=== PATIENT | female | born 1965 | race American Indian/Alaskan Native ===

== ENCOUNTER 2021-10-19 21:53 | Inpatient (IN) | payer OTHER ==
--- NOTE | 2021-10-19 22:47 | Cat Scan Report ---
CT HEAD WITHOUT CONTRAST INDICATION / CLINICAL INFORMATION: neuro deficits <6hrs or sx present upon awakening. TECHNIQUE: All CT scans at this location are performed using CT dose reduction for ALARA by means of automated e xposure control. COMPARISON: None available. FINDINGS: HEMORRHAGE: No evidence of intracranial hemorrhage or extra-axial fluid collection. EXTRA-AXIAL SPACES: Cortical sulci, sylvian fissures and basilar cisterns have an unremarkable appear ance. VENTRICULAR SYSTEM: The third and lateral ventricles are of normal size and configuration. CEREBRAL PARENCHYMA: No areas of abnormal brain parenchymal attenuation are identified. There is no i ndication of recent infarction. MIDLINE SHIFT OR HERNIATION: There is no mass effect. CEREBELLUM / BRAINSTEM: Brainstem and cerebellum have an unremarkable appearance. MIDLINE STRUCTURES:No abnormalities of the pituitary gland or pineal region are identified. INTRACRANIAL VESSELS:No abnormalities are identified on this noncontrast head CT. ORBITS: visualized portions of the orbits have an unremarkable appearance. SOFT TISSUES of HEAD: No significant abnormality. CALVARIUM: Evaluation of bone windows reveals no abnormalities. PARANASAL SINUSES / MASTOID AIR CELLS: Visualized portions of the paranasal sinuses are free from inf lammatory mucosal disease. Mastoid air cells are normally pneumatized. ADDITIONAL FINDINGS: None. IMPRESSION: 1. No significant intercranial abnormality identified on head CT without contrast. Signer Name: Wes Anderson MD Signed: 10/19/2021 10:43 PM Workstation Name: [id number]
[2021-10-19 23:15] LABS: Basophils % (Auto) 0.6 % (0.0-1.8); Hematocrit 42.3 % (30.3-42.9); Lymphocytes # (Auto) 2.4 K/mm3 (1.2-5.4); Lymphocytes % (Auto) 38.4 % (13.4-35.0); Mean Corpuscular HGB Conc 33 % (30-34); Mean Corpuscular Volume 87 fl (79-97); Monocytes # (Auto) 0.5 K/mm3 (0.0-0.8); Monocytes % (Auto) 7.9 % (0.0-7.3); Platelet Count 245 K/mm3 (140-440); Red Blood Count 4.84 M/mm3 (3.65-5.03); Red Cell Distribution Width 14.6 % (13.2-15.2)
[2021-10-19 23:18] LABS: Thrombin Time 16.6 Sec. (15.1-19.6)
[2021-10-19 23:22] LABS: Blood Urea Nitrogen 15 mg/dL (7-17); Calcium 9.7 mg/dL (8.4-10.2); Hemolysis Index 6
[2021-10-19 23:29] LABS: BUN/Creatinine Ratio 30
--- NOTE | 2021-10-20 08:59 | Emergency Department Report ---
ED Neuro Deficit HPI - General Chief Complaint: Neuro Symptoms/Deficit Stated Complaint: RIGHT SIDE NUMBNESS Source: patient, family Mode of arrival: Ambulatory Limitations: No Limitations - History of Present Illness Initial Comments: Patient is a 56-year-old female presenting to ED with complaint of right-sided facial numbness along with weakness in her right arm and leg beginning 2 days ago. She denies any past history of CVA. - Related Data Allergies/Adverse Reactions: Allergies Allergy/AdvReac Type Severity Reaction Status Date / Time No Known Allergies Allergy Verified 10/19/21 22:10 ED Review of Systems ROS: Stated complaint: RIGHT SIDE NUMBNESS Other details as noted in HPI Constitutional: denies: chills, fever Respiratory: denies: cough, shortness of breath, wheezing Cardiovascular: denies: chest pain, palpitations Gastrointestinal: denies: abdominal pain, nausea, diarrhea Genitourinary: denies: urgency, dysuria, discharge Musculoskeletal: denies: back pain, joint swelling, arthralgia Skin: denies: rash, lesions Neurological: weakness, numbness Psychiatric: denies: anxiety, depression ED Neuro Physical Exam - General Limitations: No Limitations General appearance: alert, in no apparent distress Suspected Stroke: No - Head Head exam: Present: atraumatic, normocephalic - Respiratory Respiratory exam: Present: normal lung sounds bilaterally. Absent: respiratory distress - Cardiovascular Cardiovascular Exam: Present: regular rate, normal rhythm, normal heart sounds - GI/Abdominal GI/Abdominal exam: Present: soft. Absent: distended, tenderness - Rectal Rectal exam: Present: deferred - Neurological Exam Neurological exam: Present: alert, oriented X3 - NIHSS Assessment Interval: Baseline 1a. Level of Consciousness: alert/keenly responsive 1b. LOC Questions: answers both correctly 1c. LOC Commands: performs tasks correctly 2. Best Gaze: normal 3. Visual: no visual loss 4. Facial Palsy: normal symmetrical movement 5b. Motor Arm Right: no drift 5a. Motor Arm Left: no drift 6a. Motor Leg Left: no drift 6b. Motor Leg Right: no drift 7. Limb Ataxia: absent 8. Sensory: normal 9. Best Language: no aphasia 10. Dysarthria: normal 11. Extinction/Inattention: no abnormality Total Score: 0 Stroke Severity: No Stroke Symptoms - Psychiatric Psychiatric exam: Present: normal affect, normal mood - Skin Skin exam: Present: warm, dry, intact, normal color ED Course Vital Signs 10/19/21 10/20/21 21:57 09:46 Temperature 97.3 F L Pulse Rate 94 H 74 Respiratory 18 18 Rate Blood Pressure 157/84 Blood Pressure 176/82 [Left] O2 Sat by Pulse 98 100 Oximetry - Lab Data Result diagrams: 10/19/21 22:34 10/19/21 22:34 Lab Results 10/19/21 10/19/21 10/19/21 Range/Units 22:04 22:34 22:34 WBC 6.2 (4.5-11.0) K/mm3 RBC 4.84 (3.65-5.03) M/mm3 Hgb 14.0 (10.1-14.3) gm/dl Hct 42.3 (30.3-42.9) % MCV 87 (79-97) fl MCH 29 (28-32) pg MCHC 33 (30-34) % RDW 14.6 (13.2-15.2) % Plt Count 245 (140-440) K/mm3 Lymph % (Auto) 38.4 H (13.4-35.0) % [place] % (Auto) 7.9 H (0.0-7.3) % Eos % (Auto) 0.0 (0.0-4.3) % Baso % (Auto) 0.6 (0.0-1.8) % Lymph # (Auto) 2.4 (1.2-5.4) K/mm3 [place] # (Auto) 0.5 (0.0-0.8) K/mm3 Eos # (Auto) 0.0 (0.0-0.4) K/mm3 Baso # (Auto) 0.0 (0.0-0.1) K/mm3 Seg Neutrophils % 53.1 (40.0-70.0) % Seg Neutrophils # 3.3 (1.8-7.7) K/mm3 PT 14.6 (12.2-14.9) Sec. INR 1.00 (0.87-1.13) APTT 32.0 (24.2-36.6) Sec. Thrombin Time 16.6 (15.1-19.6) Sec. Sodium (137-145) mmol/L Potassium (3.6-5.0) mmol/L Chloride (98-107) mmol/L Carbon Dioxide (22-30) mmol/L Anion Gap mmol/L BUN (7-17) mg/dL Creatinine (0.6-1.2) mg/dL Estimated GFR ml/min BUN/Creatinine Ratio % Glucose (65-100) mg/dL POC Glucose 94 (70-105) mg/dL Calcium (8.4-10.2) mg/dL Troponin T (0.00-0.029) ng/mL 10/19/21 10/20/21 Range/Units 22:34 09:49 WBC (4.5-11.0) K/mm3 RBC (3.65-5.03) M/mm3 Hgb (10.1-14.3) gm/dl Hct (30.3-42.9) % MCV (79-97) fl MCH (28-32) pg MCHC (30-34) % RDW (13.2-15.2) % Plt Count (140-440) K/mm3 Lymph % (Auto) (13.4-35.0) % [place] % (Auto) (0.0-7.3) % Eos % (Auto) (0.0-4.3) % Baso % (Auto) (0.0-1.8) % Lymph # (Auto) (1.2-5.4) K/mm3 [place] # (Auto) (0.0-0.8) K/mm3 Eos # (Auto) (0.0-0.4) K/mm3 Baso # (Auto) (0.0-0.1) K/mm3 Seg Neutrophils % (40.0-70.0) % Seg Neutrophils # (1.8-7.7) K/mm3 PT (12.2-14.9) Sec. INR (0.87-1.13) APTT (24.2-36.6) Sec. Thrombin Time (15.1-19.6) Sec. Sodium 140 (137-145) mmol/L Potassium 4.6 (3.6-5.0) mmol/L Chloride 103.0 (98-107) mmol/L Carbon Dioxide 27 (22-30) mmol/L Anion Gap 15 mmol/L BUN 15 (7-17) mg/dL Creatinine 0.5 L (0.6-1.2) mg/dL Estimated GFR > 60 ml/min BUN/Creatinine Ratio 30 % Glucose 98 (65-100) mg/dL POC Glucose 82 (70-105) mg/dL Calcium 9.7 (8.4-10.2) mg/dL Troponin T < 0.010 (0.00-0.029) ng/mL - Medical Decision Making Labs grossly unremarkable. CT head unremarkable. CTA head and neck showed no significant occlusion or stenosis. Stroke score 0. I discussed results with patient. She is stable for discharge home with return precautions. Critical care attestation.: If time is entered above; I have spent that time in minutes in the direct care of this critically ill patient, excluding procedure time. ED Disposition Clinical Impression: Weakness of right side of body, Right facial numbness Disposition: 01 HOME / SELF CARE / HOMELESS Is pt being admited?: No Condition: Stable Instructions: Paresthesia, [id number], Weakness, [id number] Additional Instructions: Please follow-up with your regular doctor within 3 to 5 days. You may return if your symptoms worsen. Time of Disposition: 11:48
--- NOTE | 2021-10-20 11:10 | Cat Scan Report ---
CT angio head HISTORY: Numbness, weakness COMPARISON: CT head from 10/19/2021 TECHNIQUE: CTA of the head is performed after IV contrast. 3-D/MIP reformats were postprocessed. Per centage stenosis is determined by direct quantitative measurements of diseased internal carotid arter y diameter compared with normal distal internal carotid artery reference segments or by criteria emmanuel lar to NASCET where applicable. All CT scans at this location are performed using CT dose reduction f or ALARA by means of automated exposure control. FINDINGS: CTA HEAD: Intracranial internal carotid arteries: No occlusion or significant stenosis. Anterior cerebral arteries: No occlusion or significant stenosis. Middle cerebral arteries: No occlusion or significant stenosis. Intracranial vertebral arteries: No occlusion or significant stenosis. Basilar artery: No occlusion or significant stenosis. Posterior cerebral arteries: No occlusion or significant stenosis. No aneurysm. Additional findings: None. IMPRESSION: 1. CTA HEAD: No occlusion or significant stenosis of the major intracranial vasculature. Signer Name: Kelby Esquivel MD Signed: 10/20/2021 11:05 AM Workstation Name: [id number]
--- NOTE | 2021-10-20 11:11 | Cat Scan Report ---
CT angio neck HISTORY: Numbness, weakness COMPARISON: CT head from 10/19/2021. TECHNIQUE: Routine CTA of the neck is performed. 3-D/MIP reformats were postprocessed. Percentage st enosis is determined by direct quantitative measurements of diseased internal carotid artery diameter compared with normal distal internal carotid artery reference segments or by criteria similar to ZAFAR CET where applicable. All CT scans at this location are performed using CT dose reduction for ALARA b y means of automated exposure control. FINDINGS: Aortic arch: No significant abnormality. Cervical vertebral arteries: No occlusion or hemodynamically significant stenosis. Common Carotid arteries: No occlusion or hemodynamically significant stenosis. Internal carotid arteries: No occlusion or hemodynamically significant stenosis. Additional findings: Heterogeneous thyroid gland without suspicious lesion. IMPRESSION: 1. No occlusion or significant stenosis. No significant abnormality. Signer Name: Kelby Esquivel MD Signed: 10/20/2021 11:06 AM Workstation Name: [id number]
--- NOTE | 2021-10-20 12:36 | Consultation ---
History of Present Illness Consult date: 10/20/21 History of present illness: [place] [facility] Consult Note # Demographics Consult Type: General Neurology Patient Location: Emergency Room First Name: ALEXA Last Name: MARINE Date of : 1965 Age: 56 Gender: Female Facility: [facility] Time of Initial Page ( Time): 10/20/2021, 12:18 Time of Return Call ( Time): 10/20/2021, 12:18 # HPI Chief Complaint: numbness History: Patient reported right-sided numbness & leg stiffening starting on Sunday. Last Known Normal: I have collected independent history specific to time last normal or last known well. We have collaborated with the provider and at this time, we have the most current timeline with the information that is available. 10/19/21 Duration: constant days Possible Thrombolytic candidate: not on warfarin or NOACs Associated Symptoms: headache no neck pain Quality: numbness # Scores Time of exam and NIHSS ( Time): 10/20/2021, 12:20 Level of Consciousness 1a: [0] = Alert; keenly responsive LOC Questions 1b: [0] = Answers both questions correctly LOC Commands 1c: [0] = Performs both tasks correctly Best Gaze 2: [0] = Normal Visual 3: [0] = No visual loss Facial Palsy 4: [0] = Normal symmetrical movements Motor Arm Left 5a: [0] = No drift Motor Arm Right 5b: [0] = No drift Motor Leg Left 6a: [0] = No drift Motor Leg Right 6b: [0] = No drift Limb Ataxia 7: [0] = Absent Sensory 8: [1] = Uszh-je-mjgutbll sensory loss Best Language 9: [0] = No aphasia Dysarthria 10: [0] = Normal Extinction and Inattention 11: [0] = No abnormality NIHSS Total: 1 Modified Macomb Scale (mRS) pre-stroke: [0] = No Symptoms Modified Macomb Scale total: 0 VAN Screening: Negative # Exam Vitals: 97.3 SBP: 176 DBP: 82 Mental Status: awake alert and oriented x 3 follows commands Language: normal speech Motor: no drift Sensory: decreased sensation right face decreased sensation right upper extremity decreased sensation right lower extremity Cerebellar: normal finger nose Additional Neurologic Exam: Evaluation limited due to observational assessment (i.e., deep tendon reflexes). In-person exam may be helpful for more subtle signs that cannot be detected via telemedicine. # ROS Pulmonary: no shortness of breath Cardiovascular: no chest pain Genitourinary: no urinary incontinence # PMH-FH-SH Social History: non-smoker Medications: Methimazole Allergies: NKDA # Data Glucose: [address] personally read by me (Eastern Time): 10/20/2021, 12:[address]: no bleed per radiologist read CTA Head: no large vessel occlusion per radiologist read CTA Neck: patent vessels per radiologist read # Assessment Impression: Numbness, evaluate for stroke versus demyelinating disease # Plan Thrombolytic/Intervention: NOT IV Thrombolysis or IA Intervention candidate Thrombolytic Exclusion: > 4.5 hours Labs: B12 CBC comprehensive metabolic panel ESR hemoglobin A1c lipid panel thiamine troponin TSH urine drug screen ua Imaging: (urgency: routine): MRI Brain with AND without contrast MRI C spine Therapy/Evaluation: PT/OT evaluation Medication: migraine cocktail: Toradol 30 mg IV + Benadryl 25 mg IV + antiemetic IV Continue outpatient medication regimen pending diagnostic results. Other: I have discussed my recommendations with the referring provider Medications and Allergies Allergies Allergy/AdvReac Type Severity Reaction Status Date / Time No Known Allergies Allergy Verified 10/19/21 22:10 Physical Examination - Vital Signs Vital Signs: Vital Signs Temp Pulse Resp BP Pulse Ox 97.3 F L 94 H 18 157/84 98 10/19/21 21:57 10/19/21 21:57 10/19/21 21:57 10/19/21 21:57 10/19/21 21:57 Results - Laboratory Findings CBC and BMP: 10/19/21 22:34 10/19/21 22:34 Abnormal Lab Findings: Abnormal Labs 10/19/21 10/19/21 22:34 22:34 Lymph % (Auto) 38.4 H [place] % (Auto) 7.9 H Creatinine 0.5 L
[2021-10-20] MEDS ORDERED: oxyCODONE /ACETAMINOPHEN 5-325MG TAB PO PRN (12:45)
[2021-10-20] MEDS ORDERED: MAGNESIUM HYDROXIDE (MOM) ORAL LIQD UDC PO PRN (12:45)
[2021-10-20] MEDS ORDERED: METOCLOPRAMIDE 10 MG TAB PO PRN (12:45)
[2021-10-20] MEDS ORDERED: MORPHINE 4 MG/1 ML INJ IV PRN (12:45)
[2021-10-20] MEDS ORDERED: ONDANSETRON 4 MG/2 ML INJ IV PRN (12:45)
[2021-10-20] MEDS ORDERED: ACETAMINOPHEN 325 MG TAB PO PRN (12:45)
[2021-10-20] MEDS ORDERED: PROMETHAZINE 25 MG RECT SUPP PR PRN (12:45)
--- NOTE | 2021-10-20 12:45 | History and Physical Report ---
History of Present Illness Chief complaint: I feel weak on my right side History of present illness: 56 YO Female with no PHM presents ED for evaluation. Patient reports" I feel weak, right side". Patient states that she was in her usual state of health 2 days ago when she awakened from sleep and was found to have new onset right- sided weakness. Patient states that symptoms have persisted over the last 2 days. Patient transported to [facility] via private vehicle for further care and evaluation of the aforementioned symptoms. The patient was seen and evaluated in the emergency department. All lab and imaging studies reviewed. Patient found to have a blood pressure range of 176-183/84-110 mmHg which is consistent with accelerated hypertension. Patient also found to have a focal neurologic deficit which is consistent with new onset CVA. Patient admitted to medical floor and initiated on CVA protocol. Teleneurology consulted. Patient deemed outside therapeutic window for tPA. Patient denies fever, chills, chest pain, palpitation, adductive cough, skin rash, recent contact, or known exposure to COVID-19. No prior admission for review. No medication listed at time of admission for reconciliation. Advanced care planning conducted in ED. Past History Past Medical History: other (See HPI) Past Surgical History: No surgical history, Other (Reviewed) Social history: single. denies: smoking, alcohol abuse, prescription drug abuse Family history: hypertension Medications and Allergies Allergies Allergy/AdvReac Type Severity Reaction Status Date / Time No Known Allergies Allergy Verified 10/19/21 22:10 Review of Systems Constitutional: no weight loss, no weight gain, no fever, no chills Ears, nose, mouth and throat: no ear pain, no tinnitis, no decreased hearing, no nasal congestion, no nasal discharge, no sinus pressure Breasts: no change in shape, no mass Cardiovascular: no chest pain, no orthopnea, no palpitations, no syncope Respiratory: no cough, no cough with sputum, no hemoptysis, no shortness of breath Gastrointestinal: no abdominal pain, no nausea, no vomiting, no diarrhea, no constipation, no change in bowel habits, no hematemesis Genitourinary Female: no pelvic pain, no flank pain, no dysuria, no urinary frequency, no urgency Rectal: no pain, no incontinence, no bleeding Musculoskeletal: no neck stiffness, no neck pain, no shooting arm pain, no low back pain, no shooting leg pain, no leg numbness/tingling, no redness of joints Integumentary: no rash, no pruritis, no redness, no sores, no wounds Neurological: weakness, numbness, lack of coordination, change in speech, gait dysfunction, motor disturbance Psychiatric: no anxiety, no memory loss, no change in sleep habits, no sleep di sturbances, no insomnia, no hypersomnia, no change in appetite Endocrine: no cold intolerance, no heat intolerance, no excessive thirst, no polydipsia, no polyuria, no nocturia Hematologic/Lymphatic: no easy bruising, no easy bleeding, no lymphedema Allergic/Immunologic: no urticaria, no allergic rhinitis, no wheezing, no p ersistent infections, no anaphylaxis Exam - Constitutional Vitals: Temp Pulse Resp BP Pulse Ox 97.3 F L 81 18 164/106 100 10/19/21 21:57 10/20/21 12:18 10/20/21 12:18 10/20/21 12:18 10/20/21 12:18 General appearance: Present: mild distress - EENT Eyes: Present: PERRL ENT: hearing intact, clear oral mucosa - Neck Neck: Present: supple, normal ROM - Respiratory Respiratory effort: normal Respiratory: bilateral: CTA - Cardiovascular Heart Sounds: Present: S1 & S2. Absent: rub, click - Extremities Extremities: pulses symmetrical, No edema Peripheral Pulses: within normal limits - Abdominal General gastrointestinal: Present: soft, non-tender, non-distended, normal bowel sounds Female genitourinary: Present: normal - Integumentary Integumentary: Present: clear, warm, dry - Musculoskeletal Musculoskeletal: gait normal, strength equal bilaterally - Psychiatric Psychiatric: appropriate mood/affect, intact judgment & insight - Neurologic Neurologic: CNII-XII intact, moves all extremities, no gait normal HEART Score - HEART Score Troponin: Troponin T < 0.010 ng/mL (0.00-0.029) 10/19/21 22:34 Results - Labs CBC & Chem 7: 10/19/21 22:34 10/19/21 22:34 Labs: Abnormal lab results 10/19/21 10/19/21 Range/Units 22:34 22:34 Lymph % (Auto) 38.4 H (13.4-35.0) % [place] % (Auto) 7.9 H (0.0-7.3) % Creatinine 0.5 L (0.6-1.2) mg/dL Assessment and Plan - Patient Problems (1) CVA (cerebral vascular accident) Current Visit: Yes Status: Acute Plan to address problem: CVA protocol: CT scan brain, CTA head, CTA neck, teleneurology consulted, echocardiogram, carotid Doppler, antiplatelet therapy, lipid panel, statin therapy, risk factor reduction, physical therapy consulted, Occupational Therapy consulted, speech therapy consulted. (2) Right hemiparesis Current Visit: Yes Status: Acute Plan to address problem: Physical therapy consulted, supportive care. (3) Accelerated hypertension Current Visit: Yes Status: Acute Plan to address problem: Monitor blood pressure every shift, continue medical management. Blood pressure checks as per nursing care protocol, permissive hypertension overnight. (4) DVT prophylaxis Current Visit: Yes Status: Acute Plan to address problem: SCD to bilateral lower extremities while in bed (5) Advance care planning Current Visit: Yes Status: Acute Plan to address problem: Disease education done, care plan discussed, diagnosis discussed, prognosis discussed, patient is full code. Patient knowledges understanding agree with care plan, +30 minutes. (6) Preventative health care Current Visit: Yes Status: Acute Plan to address problem: Patient counseled regarding risk factor reduction, medication compliance, blood pressure control. Patient counseled regarding outpatient follow-up with primary care physician for all age and risk factor appropriate screening test. Patient was counseled regarding [employer] follow-up for all age and risk factor appropriate screening test. +30 minutes.
--- NOTE | 2021-10-20 14:57 | Vascular Lab Report ---
DUPLEX DOPPLER ULTRASOUND CAROTID, BILATERAL INDICATION / CLINICAL INFORMATION: stroke. COMPARISON: None available. FINDINGS: RIGHT CAROTID: - PLAQUE ESTIMATE (%): < 50% - CCA velocity: 75.2 cm/sec. - ICA peak systolic velocity: 106.5 cm/sec. - ICA/CCA PSV Ratio: 1.42 Right Vertebral Artery: Antegrade flow. LEFT CAROTID: - PLAQUE ESTIMATE: <50% - CCA velocity: 91.3 cm/sec. - ICA peak systolic velocity: 122.3 cm/sec. - ICA/CCA PSV Ratio: 1.34 Left Vertebral Artery: Antegrade flow. IMPRESSION: 1. Right Internal Carotid Artery: Less than 50% diameter stenosis. 2. Left Internal Carotid Artery: Less than 50% diameter stenosis. Velocity criteria are extrapolated from diameter data as defined by the Society of Radiologists in Ul trasound Consensus Conference, Radiology 2003; 229;340-346. NO STENOSIS (NORMAL) * Plaque = none; ICA PSV < 125 cm/sec; ICA/CCA PSV Ratio < 2.0 <50% STENOSIS * Plaque < 50%; ICA PSV < 125 cm/sec; ICA/CCA PSV Ratio < 2.0 50-69% STENOSIS * Plaque > 50%; ICA PSV = 125-230 cm/sec; ICA/CCA PSV Ratio = 2.0-4.0 >70% BUT <100% STENOSIS * Plaque > 50%; ICA PSV > 230 cm/sec; ICA/CCA PSV Ratio > 4.0 NEAR OCCLUSION * Plaque = visible lumen; ICA PSV = high/low/none; ICA/CCA PSV Ratio = variable TOTAL OCCLUSION * Plaque = no lumen; ICA PSV = none; ICA/CCA PSV Ratio = N/A Signer Name: Nasim Mckeon MD Signed: 10/20/2021 2:53 PM Workstation Name: [email or web address]
--- NOTE | 2021-10-20 18:49 | Electrocardiograph Report ---
[facility] Test Date: 2021-10-20 Test Time: 09:40:30 Pat Name: ALEXA HAWTHORNE Department: Room: A478 Gender: F Filling Machine Operator: FLY : 1965 Requested By: RO YI Order Number: [id number] Reading MD: Angie Simms Measurements Intervals [place] Rate: 71 P: 50 [place]: 160 QRS: 15 QRSD: 95 T: 4 QT: 382 QTc: 416 Interpretive Statements Sinus rhythm No previous ECG available for comparison Electronically Signed On 10-20-2021 18:49:26 EDT by Angie Simms
[2021-10-21] MEDS ORDERED: LORazepam 2 MG/ML VIAL IV NR (08:55)
[2021-10-21 09:14] LABS: Chol/HDL Ratio 1.7 %
--- NOTE | 2021-10-21 11:51 | Magnetic Resonance Report ---
MR cervical spine wo con, MR brain wo/w con INDICATION / CLINICAL INFORMATION: stroke r/o, LEFT ARM TINGLING Patient medicated prior to MR, continued to move, uncooperative, best p ossible study, repeated scans.. TECHNIQUE: Multiplanar, multisequence MR images of the brain and cervical spine were obtained. COMPARISON: None available. FINDINGS: MRI BRAIN: INTRACRANIAL: Small area of restricted diffusion seen within the left posterior limb of internal caps ule. No hemorrhage. Ventricular caliber is normal. No extra-axial collection. No mass. No herniation . Major intracranial vascular flow voids are preserved. Postcontrast images are degraded by artifact but there is no definite abnormal enhancement. ORBITS: No significant abnormality of visualized orbits. SINUSES / MASTOIDS: No significant abnormality of visualized sinuses and mastoid air cells. MRI CERVICAL: ALIGNMENT: Normal alignment. VERTEBRAE:No aggressive osseous marrow signal. Vertebral body heights are preserved. SPINAL CORD: No abnormal cord signal [id number] ANALYSIS: C2-C3: No significant spinal canal stenosis. No significant foraminal narrowing. C3-C4: No significant spinal canal stenosis. No significant foraminal narrowing. C4-C5: No significant spinal canal stenosis. No significant foraminal narrowing. C5-C6: No significant spinal canal stenosis. No significant foraminal narrowing. C6-C7: No significant spinal canal stenosis. No significant foraminal narrowing. C7-T1: No significant spinal canal stenosis. No significant foraminal narrowing. PARASPINAL SOFT TISSUES: No significant abnormality. ADDITIONAL FINDINGS: None. IMPRESSION: 1. Acute lacunar infarction seen in the left posterior limb of the internal capsule. 2. No significant abnormality of the cervical spine. Signer Name: Kelby Esquivel MD Signed: 10/21/2021 11:46 AM Workstation Name: [id number]
--- NOTE | 2021-10-21 13:15 | Progress Note ---
Assessment and Plan Assessment and plan: #CVA vs TIA -CT head negative for acute abnormality -CT angiogram of the head and neck negative for occlusion or significant stenosis -Carotid Doppler showed less than 50% stenosis bilaterally -Echocardiogram showed normal ejection fraction and no PFO -MRI brain pending -continue ASA + statin -PT/OT/ST evaluation pending -Neurology consulted, assistance appreciated #Hypertension -patient reports taking BP medications in the past but no longer takes it -patient declined starting BP medications at this time -goal BP <140/90 while inpatient #Advanced care planning -Disease education conducted, care plan discussed, diagnoses discussed, prognosis discussed, and patient acknowledges understanding with care plan -Time: +30 min History Interval history: No acute events overnight. Patient reports improvement in presenting symptoms. She has no acute complaints at this time. Hospitalist Physical - Physical exam Narrative exam: GENERAL: Well-developed well-nourished. In no acute distress. HEENT: Normocephalic. Atraumatic. NECK: Supple. CHEST/LUNGS: CTAB on room air HEART/CARDIOVASCULAR: RRR. No murmur, rubs or gallops appreciated. ABDOMEN: +BS. NT/ND. SKIN: No rashes noted. NEURO: No focal motor deficit. Follows all commands and is ambulatory. MUSCULOSKELETAL: No joint effusion EXTREMITIES: No cyanosis, clubbing or edema. PSYCH: Cooperative. - Constitutional Vitals: Temp Pulse Resp BP Pulse Ox 98.3 F 111 H 16 152/94 99 10/21/21 11:54 10/21/21 11:54 10/21/21 03:48 10/21/21 11:54 10/21/21 11:54 General appearance: Present: mild distress HEART Score - HEART Score Troponin: Troponin T < 0.010 ng/mL (0.00-0.029) 10/19/21 22:34 Results - Labs CBC & Chem 7: 10/19/21 22:34 10/19/21 22:34 Labs: Laboratory Last Values WBC 6.2 K/mm3 (4.5-11.0) 10/19/21 22:34 RBC 4.84 M/mm3 (3.65-5.03) 10/19/21 22:34 Hgb 14.0 gm/dl (10.1-14.3) 10/19/21 22:34 Hct 42.3 % (30.3-42.9) 10/19/21: MCV 87 fl (79-97) 10/19/21: MCH 29 pg (28-32) 10/19/21: MCHC 33 % (30-34) 10/19/21: RDW 14.6 % (13.2-15.2) 10/19/21: Plt Count 245 K/mm3 (140-440) 10/19/21: Lymph % (Auto) 38.4 % (13.4-35.0) H 10/19/21:34 Louisa % (Auto) 7.9 % (0.0-7.3) H 10/19/21: Eos % (Auto) 0.0 % (0.0-4.3) 10/19/21: Baso % (Auto) 0.6 % (0.0-1.8) 10/19/21: Lymph # (Auto) 2.4 K/mm3 (1.2-5.4) 10/19/21: Louisa # (Auto) 0.5 K/mm3 (0.0-0.8) 10/19/21: Eos # (Auto) 0.0 K/mm3 (0.0-0.4) 10/19/21: Baso # (Auto) 0.0 K/mm3 (0.0-0.1) 10/19/21: Seg Neutrophils % 53.1 % (40.0-70.0) 10/19/21: Seg Neutrophils # 3.3 K/mm3 (1.8-7.7) 10/19/21: PT 14.6 Sec. (12.2-14.9) 10/19/21: INR 1.00 (0.87-1.13) 10/19/21: APTT 32.0 Sec. (24.2-36.6) 10/19/21: Thrombin Time 16.6 Sec. (15.1-19.6) 10/19/21: Sodium 140 mmol/L (137-145) 10/19/21: Potassium 4.6 mmol/L (3.6-5.0) 10/19/21 22:34 Chloride 103.0 mmol/L (98-107) 10/19/21 22:34 Carbon Dioxide 27 mmol/L (22-30) 10/19/21 22:34 Anion Gap 15 mmol/L 10/19/21 22:34 BUN 15 mg/dL (7-17) 10/19/21 22:34 Creatinine 0.5 mg/dL (0.6-1.2) L 10/19/21 22:34 Estimated GFR > 60 ml/min 10/19/21 22:34 BUN/Creatinine Ratio 30 % 10/19/21 22:34 Glucose 98 mg/dL (65-100) 10/19/21 22:34 POC Glucose 82 mg/dL (70-105) 10/20/21 09:49 Hemoglobin A1c 5.2 % (4-6) 10/21/21 08:28 Calcium 9.7 mg/dL (8.4-10.2) 10/19/21 22:34 Troponin T < 0.010 ng/mL (0.00-0.029) 10/19/21 22:34 Triglycerides 43 mg/dL (2-149) 10/21/21 08:28 Cholesterol 138 mg/dL (50-199) 10/21/21 08:28 LDL Cholesterol Direct 52 mg/dL (50-130) 10/21/21 08:28 HDL Cholesterol 81 mg/dL (40-59) H 10/21/21 08:28 Cholesterol/HDL Ratio 1.70 % 10/21/21 08:28 Casas/IV: Voiding Method Toilet Active Medications - Current Medications Current Medications: Generic Name Dose Route Start Last Admin Trade Name Freq PRN Reason Stop Dose Admin Acetaminophen 650 mg 10/20/21 12:45 10/20/21 22:18 Acetaminophen 325 Mg Tab PO 650 mg Q4H PRN Administration Pain, Mild (1-3) Aspirin 325 mg 10/21/21 10:00 Aspirin 325 Mg Tab PO QDAY VITOR Atorvastatin Calcium 40 mg 10/20/21 22:00 10/20/21 22:19 Atorvastatin 40 Mg Tab PO 40 mg QHS VITOR Administration Bisacodyl 10 mg 10/20/21 12:45 Bisacodyl 10 Mg Rect Supp AK QDAY PRN Constipation Magnesium Hydroxide 30 ml 10/20/21 12:45 Magnesium Hydroxide (Mom) Oral Liqd Udc PO Q4H PRN Constipation Metoclopramide HCl 10 mg 10/20/21 12:45 Metoclopramide 10 Mg Tab PO Q6H PRN Nausea And Vomiting Morphine Sulfate 2 mg 10/20/21 12:45 Morphine 4 Mg/1 Ml Inj IV Q14H PRN Pain , Severe (7-10) Ondansetron HCl 4 mg 10/20/21 12:45 Ondansetron 4 Mg/2 Ml Inj IV Q8H PRN Nausea And Vomiting Oxycodone/Acetaminophen 1 tab 10/20/21 12:45 Oxycodone /Acetaminophen 5-325mg Tab PO Q16H PRN Pain, Moderate (4-6) Promethazine HCl 25 mg 10/20/21 12:45 Promethazine 25 Mg Rect Supp AK Q6H PRN Nausea And Vomiting Sodium Chloride 10 ml 10/20/21 12:45 Sodium Chloride 0.9% 10 Ml Flush Syringe IV PRN PRN LINE FLUSH
[2021-10-21] MEDS: ASPIRIN 325 MG TAB PO SCH (17:30)
[2021-10-22 08:13] VITALS: BP 136/80
--- NOTE | 2021-10-22 08:18 | Discharge Summary ---
Providers - Providers Date of Admission: 10/20/21 12:45 Date of discharge: 10/22/21 Attending physician: JOSSIE PANDA MD 10/20/21 12:00 Telemedicine [[facility] Consult Order] [CONS] ONCE Comment: Consulting Provider: Reason For Exam: Right-sided weakness 10/20/21 12:45 Occupational Therapy Evaluate and Treat [CONS] Routine Comment: Reason For Exam: Neuro deficits Physical Therapy Evaluation and Treat [CONS] Routine Comment: Reason For Exam: Neuro deficits 10/20/21 12:46 Speech Therapy Evaluation and Treat [CONS] Routine Reason For Exam: swallow eval 10/21/21 13:18 Consult to Case Management [CONS] Routine Services Needed at Discharge: Physical Therapy Primary care physician: [employer] Hospitalization Reason for admission: CVA rule out Condition: Stable Hospital course: CT of the head showed no significant abnormality. CT angiogram of the head and neck showed no occlusion or significant stenosis. Carotid Doppler showed less than 50% stenosis bilaterally. Echocardiogram showed normal ejection fraction and no PFO. MRI of the brain showed an acute lacunar infarction in the left posterior limb of the internal capsule. MRI of the cervical spine showed no acute abnormality. Once stable, patient was discharged home. Disposition: 01 HOME / SELF CARE / HOMELESS Final Discharge Diagnosis (Prints w/discharge instructions): Acute ischemic CVA with right hemiparesis. Hypertension Time spent for discharge: 30 minutes Core Measure Documentation - Palliative Care Palliative Care/ Comfort Measures: Not Applicable - Core Measures Any of the following diagnoses?: stroke - Stroke Discharge Requirements Statin for LDL = or >70 mg/dl on DC: Yes Anticoag for atrial fib/atrial flutter: Not Applicable Antithrombotic for ischemic stroke: Yes Exam - Physical Exam Narrative exam: GENERAL: Well-developed well-nourished. In no acute distress. HEENT: Normocephalic. Atraumatic. NECK: Supple. CHEST/LUNGS: CTAB on room air HEART/CARDIOVASCULAR: RRR. No murmur, rubs or gallops appreciated. ABDOMEN: +BS. NT/ND. SKIN: No rashes noted. NEURO: No focal motor deficit. Follows all commands and is ambulatory. MUSCULOSKELETAL: No joint effusion EXTREMITIES: No cyanosis, clubbing or edema. PSYCH: Cooperative. - Constitutional Vitals: Temp Pulse Resp BP Pulse Ox 98.2 F 95 H 16 136/80 100 08/06/22 08:12 10/22/21 08:12 10/22/21 08:12 10/22/21 08:12 10/22/21 08:12 Plan Care Plan Goals: Please follow-up with your primary care provider. Please have your primary care provider to refer you to a over the road driver for event monitoring to rule out other causes of stroke. We have placed an order for home health with physical therapy. Please take all medications as we have prescribed to you. Follow up with: PRIMARY CARE, [Primary Care Provider] - 3-5 Days Forms: Accompanied Note, Work/School Release Form Prescriptions: AtorvaSTATin [Lipitor] 40 mg PO QHS 90 Days #90 tablet Aspirin 325 mg PO QDAY 90 Days #90 tablet
[2021-10-22] MEDS: ASPIRIN 325 MG TAB PO SCH (10:56)
== END 2021-10-22 13:45 | disposition home health service (06) | DRG 65 ==
LOC: ED 21:53 → 4A 10-20 12:45
PROVIDERS: ADMIT Internal Medicine; ATTEND Student in an Organized Health Care Education/Training Program
DX: I63.9 Cerebral infarction, unspecified (principal); G81.91 Hemiplegia, unspecified affecting right dominant side; I10 Essential (primary) hypertension; Z82.49 Family history of ischemic heart disease and other diseases of the circulatory system
CPT/HCPCS: 36415; 70450; 70496; 70498; 70553; 72141; 80048; 80061; 82962; 83036; 84484; 85025; 85610; 85670; 85730; 93005; 93306; 93880; G0378; A9575; C8929; J2060; Q9967